=== PATIENT | female | born 1995 | race Caucasian/White ===

== ENCOUNTER 2020-02-26 09:30 | Emergency (ER) | payer MEDICAID ==
[2020-02-26 10:05] VITALS: BP 124/68
--- NOTE | 2020-02-26 10:35 | ED Physician Documentation ---
PD HPI LOWER EXT INJURY - Stated complaint Stated Complaint: LT KNEE PX - Chief complaint Chief Complaint: Ext Problem - History obtained from History obtained from: Patient - History of Present Illness PD HPI LOW EXT INJURY LOCATION: Left, Knee Type of injury: Twist (some mild twist but not abrupt injury per se. Noted onset and worsening of knee pain anteriorly and deep, with some giving out at times. No locking up.). No: Fall Timing - onset: How many days ago (has has this for several days and is worsening.) Timing - duration: Days Timing - details: Intermittant (initially but more consistent the past couple days.) Worsened by: Other (walking and pivoting). No: Palpating Associated symptoms: No: Weakness, Numbness, Swelling Similar symptoms before: Has not had sx before Review of Systems Constitutional: denies: Fever Nose: denies: Rhinorrhea / runny nose, Congestion Throat: denies: Sore throat Respiratory: denies: Cough Skin: denies: Abrasion (s), Laceration (s) Neurologic: denies: Focal weakness, Numbness PD PAST MEDICAL HISTORY - Past Medical History Musculoskeletal: None - Present Medications Home Medications: Ambulatory Orders Medication Instructions Recorded Confirmed HYDROcod/ACETAM 5/325 [Amigo 5/325] 1 ea PO TID PRN #18 tablet 02/26/20 Naproxen 375 mg PO BID #20 tablet. 02/26/20 - Allergies Allergies/Adverse Reactions: Allergies Allergy/AdvReac Type Severity Reaction Status Date / Time No Known Drug Allergies Allergy Verified 02/26/20 09:52 PD ED PE NORMAL - Vitals Vital signs reviewed: Yes - General General: Alert and oriented X 3, No acute distress (limping gait), Well developed/nourished - Derm Derm: Normal color, Warm and dry - Extremities Extremities: Other (left knee with some tenderness anteromedially. Not tender with palpation to patella. Cruciate testing without pain. Collateral testing with mild pain on valgus. Painful mostly with impaction and rotational stress c/w meniscal tenderness. No effusion of the knee however. ) - Neuro Neuro: No motor deficit, No sensory deficit Results - Vitals Vitals: Oxygen O2 Source Room air - Rads (name of study) left knee Radiology: Prelim report reviewed (no fractures nor foreign bodies. ), See rad report PD MEDICAL DECISION MAKING - ED course Complexity details: reviewed results, considered differential, d/w patient Departure - Departure Disposition: 01 Home, Self Care Clinical Impression: Knee pain, acute Qualifiers: Laterality: left Qualified Code(s): M25.562 - Pain in left knee Condition: Stable Record reviewed to determine appropriate education?: Yes Instructions: ED Meniscal Injury Knee Poss Follow-Up: Jhonson Rodrigues MD [Provider Admit Priv/Credential] - Prescriptions: Naproxen 375 mg PO BID #20 tablet. HYDROcod/ACETAM 5/325 [Amigo 5/325] 1 ea PO TID PRN #18 tablet PRN Reason: Pain Comments: Your x-ray appears normal. However this would not show cartilage or muscles or ligaments. You may have just some muscular strain of the patellar tendon. However some of it sounds possibly a cartilage problem (meniscal). For this we would use the hinged knee brace from 0 to 45 degrees to allow some support of the knee and reduce rotational effect. Anti-inflammatory of naproxen twice daily with food for the next 7 to 10 days. To that add Tylenol or pain medicine as needed. Call for an appointment with orthopedics for follow-up in about 1 to 1-1/2 weeks for further assessment if it is not better at that time. Discharge Date/Time: 02/26/20 11:38
[2020-02-26] MEDS ORDERED: ACETAMINOPHEN 325 MG TABLET PO STA (10:49)
--- NOTE | 2020-02-26 11:28 | XRAY Report ---
PROCEDURE: Knee 3 View LT INDICATIONS: acute knee pain without noted injury TECHNIQUE: 3 views of the left knee(s) were acquired. COMPARISON: None. FINDINGS: Bones: No acute fractures or dislocations. No suspicious bony lesions. Soft tissues: No joint effusion. No suspicious soft tissue calcifications. IMPRESSION: Left knee without acute radiographic abnormalities. Reviewed by: Shashi Barrientos MD on 02/26/2020 10:26 AM [facility] Approved by: Shashi Barrientos MD on 02/26/2020 10:26 AM [facility] Station ID: [id number]
== END 2020-02-26 11:38 | disposition home or self-care (01) ==
LOC: ED 09:30
DX: M25.562 Pain in left knee (principal)
CPT/HCPCS: 73562; 99283; A9270

== ENCOUNTER 2020-03-23 09:05 | Emergency (ER) | payer MEDICAID ==
[2020-03-23 09:18] VITALS: BP 122/71
--- NOTE | 2020-04-17 07:22 | ED Physician Documentation ---
History of Present Illness - Stated complaint Stated Complaint: SORE THROAT/CONGESTION - Chief complaint Chief Complaint: Heent - History obtained from History obtained from: Patient - Additonal information Additional information: 24-year-old woman, previously healthy, non-smoker presents with a couple days of URI symptoms of sore throat and cough without fevers. Patient has associated congestion. Symptoms are mild to moderate. Sore throat is worse with cough. Denies white exudates at the back of the throat. Denies shortness of breath or chest pain. Review of Systems Constitutional: denies: Fever, Chills Throat: reports: Sore throat Respiratory: reports: Cough. 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 : None HEENT: None Psych: None Musculoskeletal: None Derm: None - Past Surgical History Past Surgical History: No - Allergies Allergies/Adverse Reactions: Allergies Allergy/AdvReac Type Severity Reaction Status Date / Time No Known Drug Allergies Allergy Verified 03/28/20 15:42 - Social History Does the pt smoke?: No Smoking Status: Never smoker Does the pt drink ETOH?: No Does the pt have substance abuse?: No - Immunizations Immunizations are current?: Yes - POLST Patient has POLST: No PD ED PE NORMAL - Vitals Vital signs reviewed: Yes - General General: Alert and oriented X 3 - HEENT HEENT: Atraumatic, PERRL, EOMI, Moist mucous membranes, Dentition benign, Other (Mild erythema in posterior oropharynx. No exudates or tonsillar enlargement. No anterior cervical lymphadenopathy.) - Neck Neck: Supple, no meningeal sign - Cardiac Cardiac: RRR - Respiratory Respiratory: No respiratory distress, Clear bilaterally Results - Vitals Vitals: Oxygen O2 Source Room air PD MEDICAL DECISION MAKING - ED course Complexity details: reviewed results, d/w patient ED course: 24-year-old woman presents with viral upper respiratory infection. Centor criteria 0. Strict return precautions given. Patient will follow up with her primary doctor. Departure - Departure Disposition: 01 Home, Self Care Clinical Impression: Viral URI, Cough, Sore throat, Congestion of upper airway Condition: Good Instructions: ED Viral Syndrome Comments: You have been seen in the emergency department for a viral upper respiratory tract infection. Antibiotics will not cure your infection, but rest, hydration, and lktr-nqh-azoygan medications will help. Buy a cool air humidifier ($20-30 online or at pharmacy, a good investment) for you and your daughter to use. Return to the ED for any new or worsening symptoms. Follow-up with your primary doctor. Discharge Date/Time: 03/23/20 10:00
== END 2020-03-23 10:00 | disposition home or self-care (01) ==
LOC: ED 09:05
DX: J06.9 Acute upper respiratory infection, unspecified (principal)
CPT/HCPCS: 99281; 99282

== ENCOUNTER 2020-03-28 15:11 | Outpatient (CLI) | payer MEDICAID | END 2020-03-28 15:12 | disposition critical access hospital (66) | LOC: EMS 15:11 | PROVIDERS: ATTEND Surgery | DX: R42 Dizziness and giddiness (principal); R05 Cough; R50.9 Fever, unspecified; M79.10 Myalgia, unspecified site | CPT/HCPCS: A0425; A0429; A0999 ==

== ENCOUNTER 2020-03-28 15:31 | Emergency (ER) | payer MEDICAID ==
--- NOTE | 2020-03-28 15:58 | ED Physician Documentation ---
History of Present Illness - Stated complaint Stated Complaint: POSS C+ - Chief complaint Chief Complaint: Resp - History obtained from History obtained from: Patient - Additonal information Additional information: 24-year-old woman, previously healthy and seen by me last week presents with persistent URI symptoms progressively worsening with nonproductive cough associated with chest pain during cough, shortness of breath, body aches. Patient has no history of clots is not on estrogens is PERC negative.[facility]. Review of Systems Ten Systems: 10 systems reviewed and negative Constitutional: reports: Chills, Myalgias, Fatigue, Sweats. 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 : None HEENT: None Psych: None Musculoskeletal: None Derm: None - Past Surgical History Past Surgical History: No - Allergies Allergies/Adverse Reactions: Allergies Allergy/AdvReac Type Severity Reaction Status Date / Time No Known Drug Allergies Allergy Verified 03/28/20 15:42 - Social History Does the pt smoke?: No Smoking Status: Never smoker Does the pt drink ETOH?: No Does the pt have substance abuse?: No - Immunizations Immunizations are current?: Yes - POLST Patient has POLST: No PD ED PE NORMAL - Vitals Vital signs reviewed: Yes - General General: Alert and oriented X 3 - HEENT HEENT: Atraumatic, PERRL, EOMI - Cardiac Cardiac: RRR - Respiratory Respiratory: No respiratory distress, Clear bilaterally - Abdomen Abdomen: Non tender, Non distended - Female Female : Deferred - Rectal Rectal: Deferred - Derm Derm: Normal color - Extremities Extremities: No edema - Neuro Neuro: Alert and oriented X 3 - Psych Psych: Normal mood, Normal affect Results - Vitals Vitals: Vital Signs - 24 hr 03/28/20 15:33 Temperature 37.2 C Heart Rate 88 Respiratory 18 Rate Blood Pressure 166/96 H O2 Saturation 98 Oxygen O2 Source Room air PD MEDICAL DECISION MAKING - ED course Complexity details: d/w patient ED course: 24-year-old woman presents with Covid-like symptoms, with mild/moderate features. Her vital signs are within normal limits with normal O2 sat. With the exception of high blood pressure. We will have social work see her and will run a rapid Covid test. Departure - Departure Disposition: 01 Home, Self Care Clinical Impression: Suspected 2019 novel coronavirus infection, Shortness of breath, Cough Condition: Good Instructions: ED Viral Syndrome Comments: You have been seen for suspected COVID-19. You should stay home and get lots of rest. Return to the ED for any worsening of symptoms. You are contagious so try to avoid contact with other people outside your household.You can access your test results on the patient health portal on the [employer] website. You have to make an account and then you can look at the results. If they are positive then we will call you. If they are negative then you have to check yourself.
[2020-03-28 16:49] LABS: C. PNEUMONIAE- RESP PCR PANEL NOT DETECTED
[2020-03-28 17:29] VITALS: BP 123/90
== END 2020-03-28 18:19 | disposition home or self-care (01) ==
LOC: ED 15:31
DX: R05 Cough (principal); R06.02 Shortness of breath; R07.9 Chest pain, unspecified; Z20.828 Contact with and (suspected) exposure to other viral communicable diseases; R03.0 Elevated blood-pressure reading, without diagnosis of hypertension
CPT/HCPCS: 0202U; 99283; 99284

== ENCOUNTER 2020-11-25 15:49 | Outpatient (CLI) | payer MEDICAID | END 2020-11-25 15:50 | disposition home or self-care (01) | LOC: COV 15:49 | PROVIDERS: ATTEND Specialist | DX: Z01.812 Encounter for preprocedural laboratory examination (principal); Z20.822 Contact with and (suspected) exposure to COVID-19 ==

== ENCOUNTER 2021-06-15 08:50 | Emergency (ER) | payer MEDICAID ==
[2021-06-15 08:58] VITALS: BP 138/107
[2021-06-15] MEDS ORDERED: AMOX/CLAV 875 MG/125 MG TABLET PO STA (09:29)
--- NOTE | 2021-06-15 09:31 | ED Physician Documentation ---
PD HPI HEENT - Stated complaint Stated Complaint: SINUS PX - Chief complaint Chief Complaint: Heent - History obtained from History obtained from: Patient - Additional information Additional information: She has had problems with a cavity from a left maxillary canine for a couple of months. Was seen in the office in April and started on antibiotics. Seen again with increased pain and has an appointment for root canal but not for 2 weeks. She has increased swelling increased pain of the last few days and the dentist referred her here stating that she could have more antibiotics since she had antibiotics in the last few months? 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 : None HEENT: None Psych: None Musculoskeletal: None Derm: None - Past Surgical History Past Surgical History: No - Present Medications Home Medications: Ambulatory Orders Medication Instructions Recorded Confirmed Amox/Clav 875/125 [Augmentin] 1 each PO Q12H #20 tablet 06/15/21 HYDROcod/ACETAM 5/325 [Clarion 5/325] 1 - 2 tab PO Q6H PRN #15 tablet 06/15/21 - Allergies Allergies/Adverse Reactions: Allergies Allergy/AdvReac Type Severity Reaction Status Date / Time No Known Drug Allergies Allergy Verified 06/15/21 08:58 - Social History Does the pt smoke?: No Smoking Status: Never smoker Does the pt drink ETOH?: No Does the pt have substance abuse?: No - Immunizations Immunizations are current?: Yes - POLST Patient has POLST: No PD ED PE NORMAL - Vitals Vital signs reviewed: Yes - General General: Alert and oriented X 3, No acute distress - HEENT HEENT: Other (There is mild facial swelling overlying the left cheek and a palpable reactive gingival abscess lateral to the left Maxillary canine which does have a cavity in it and is tender. No trismus or sublingual edema.) - Neck Neck: Supple, no meningeal sign, No bony TTP - Neuro Neuro: Alert and oriented X 3, Normal speech Eye Opening: Spontaneous Motor: Obeys Commands Verbal: Oriented GCS Score: 15 Results - Vitals Vitals: Vital Signs - 24 hr 06/15/21 08:56 Temperature 36.8 C Heart Rate 72 Respiratory 16 Rate Blood Pressure 138/107 H O2 Saturation 100 Oxygen O2 Source Room air Procedures - Abscess I&D (location) Dental Preparation: Other (Inferior orbital block done with a mixture of 1% lidocaine with epinephrine and 0.5% Marcaine in standard fashion with intraoral approach) Incision: Incised with scalpel (Dental abscess was incised with purulent drainage) Other: Pt tolerated well, Dressing applied, Antibiotic prescribed Departure - Departure Disposition: 01 Home, Self Care Clinical Impression: Dental abscess Condition: Good Record reviewed to determine appropriate education?: Yes Instructions: ED Dental Abscess Facial Cellulitis Prescriptions: Amox/Clav 875/125 [Augmentin] 1 each PO Q12H #20 tablet HYDROcod/ACETAM 5/325 [Clarion 5/325] 1 - 2 tab PO Q6H PRN #15 tablet PRN Reason: Pain Comments: I sent your prescriptions electronically to [facility] in [place]. Would be reasonable to call your dentist and see if they can move up the root canal. I am prescribing a short course of narcotic pain medication for you. These are potentially dangerous and addictive medications that should be used carefully. These medications may constipate you. Take an hrcl-rak-nzxiuek stool softener (docusate) twice daily with plenty of water while taking these medications. If you go 24 hours without a bowel movement, take [id number]-[id number]-giaejhq miralax, per package instructions. Do not drink or drive while taking these medications. If you received narcotic or sedating medications while in the emergency department, do not drive for 24 hours. Store this medication in a safe, secure place and out of reach of children. It is a violation of federal law to give or sell this medication to another person or to use in a manner other than prescribed. The ED will not refill narcotic prescriptions, including prescriptions lost or stolen. To dispose of unwanted medications: 1. [facility] at [address] in [place] has a medication drop box. They accept prescription medications (in pill form) Sunday through Sunday 9:00 a.m. to 5:00 p.m. 2. The [employer] [place] [employer] accepts prescription medications (in pill form only) for disposal year round. Call for more infor mation. 3. Contact the [facility] for the next [facility] sponsored prescription drug collection event. , [phone], or [phone]; Note that many narcotic pain relievers also contain Tylenol/acetaminophen. Please ensure that your total dose of acetaminophen from all sources does not exceed 3 g (3000 mg) per day. Discharge Date/Time: 06/15/21 09:53
== END 2021-06-15 09:53 | disposition home or self-care (01) ==
LOC: ED 08:50
DX: K04.7 Periapical abscess without sinus (principal)
CPT/HCPCS: 41800; 99282; A9270

== ENCOUNTER 2022-01-30 08:48 | Outpatient (CLI) | payer MEDICAID ==
[2022-01-30 12:03] LABS: BASOPHILS % (AUTO) 0.4 %; EOSINOPHILS # (AUTO) 0.2 10^3/uL (0.0-0.7); HCT - HEMATOCRIT 39.3 % (37.0-47.0); HGB - HEMOGLOBIN 12.7 g/dL (12.0-16.0); LYMPHOCYTES # (AUTO) 1.9 10^3/uL (1.5-3.5); LYMPHOCYTES % (AUTO) 25.4 %; MEAN CORPUSCULAR HEMOGLOBIN 27.4 pg (27.0-31.0); MEAN CORPUSCULAR HGB CONC 32.3 g/dL (32.0-36.0); MEAN CORPUSCULAR VOLUME 84.9 fL (81.0-99.0); MEAN PLATELET VOLUME 10.1 fL (7.9-10.8); MONOCYTES # (AUTO) 0.5 10^3/uL (0.0-1.0); MONOCYTES % (AUTO) 6.7 %; NEUTROPHILS # (AUTO) 4.7 10^3/uL (1.5-6.6); NEUTROPHILS % (AUTO) 64.2 %; PLT - PLATELET COUNT 318 10^3/uL (130-450); RED BLOOD COUNT 4.63 10^6/uL (4.20-5.40); RED CELL DISTRIBUTION WIDTH 13.2 % (12.0-15.0); WHITE BLOOD COUNT 7.3 x10^3/uL (4.8-10.8)
[2022-01-30 12:21] LABS: ALBUMIN 4.1 g/dL (3.2-5.5); ALBUMIN/GLOBULIN RATIO 1.3 (1.0-2.2); BILIRUBIN,TOTAL 0.6 mg/dL (0.2-1.0); CREATININE 0.8 mg/dL (0.4-1.0); POTASSIUM 3.7 mmol/L (3.5-5.0); TOTAL PROTEIN 7.2 g/dL (6.7-8.2)
[2022-01-30 12:37] LABS: THYROID STIMULATING HORMONE 1.6 uIU/mL (0.34-5.60)
== END 2022-01-30 08:49 | disposition home or self-care (01) ==
LOC: LAB.N 08:48
PROVIDERS: ATTEND Registered Nurse
DX: Z79.899 Other long term (current) drug therapy (principal); Z13.29 Encounter for screening for other suspected endocrine disorder
CPT/HCPCS: 36415; 80050

== ENCOUNTER 2023-05-18 11:30 | Outpatient (CLI) | payer MEDICAID ==
--- NOTE | 2023-05-18 13:48 | XRAY Report ---
PROCEDURE: Chest 2V INDICATIONS: ACUTE COUGH TECHNIQUE: 2 views of the chest were acquired. COMPARISON: None. FINDINGS: Surgical changes and devices: None. Lungs and pleura: No pleural effusions or pneumothorax. Lungs are clear. Mediastinum: Mediastinal contours appear normal. Heart size is normal. Bones and chest wall: No suspicious bony lesions. Overlying soft tissues appear unremarkable. IMPRESSION: No acute cardiopulmonary process. Reviewed by: Toshia Stephenson MD on 05/18/2023 1:46 PM PST Approved by: Toshia Stephenson MD on 05/18/2023 1:46 PM [facility] Station ID: [id number]
== END 2023-05-18 11:45 | disposition home or self-care (01) ==
LOC: DI.N 11:30
PROVIDERS: ATTEND Physician Assistant Medical
DX: R05.1 Acute cough (principal)